=== PATIENT | male | born 1990 | race Caucasian/White ===

== ENCOUNTER 2018-01-22 15:02 | Emergency (ER) | payer OTHER ==
--- NOTE | 2018-01-22 16:05 | UC ---
General HPI - HPI Summary HPI Summary: Patient presents to urgent care with 5 days of progressive cough. Patient with coarse cough intermittent fleas. Patient states he feels like there are secretions that are "stuck." Patient does report wheezing. Patient denies fever but does work report fatigue. Patient's taken Robitussin to help with the cough. Patient denies chest pain but states his lungs feel "full" Pt denies has abdominal pain. No nausea vomiting. No rash. Patient has not taken any other [id number] medication. Patient does smoke cigarettes. Patient states his symptoms started when he was out camping. Patient works at a [employer] shop and states sometimes the heat from the oven and then going outside in the humidity makes his breathing feel worse. Patient has used inhalers in the past but does not have a history of lung disease. Patient does have sick contacts with similar symptoms but less intense that resolved in 2 days. Pt's medications reviewed this visit - History of Current Complaint Chief Complaint: UCRespiratory Stated Complaint: SUE, CONGESTION, DIARRHEA Time Seen by Provider: 01/22/18 15:51 Pain Intensity: 4 - Allergy/Home Medications Allergies/Adverse Reactions: Allergies Allergy/AdvReac Type Severity Reaction Status Date / Time Penicillins Allergy Hives Verified 01/22/18 15:34 Home Medications: Home Medications guaiFENesin LIQ* [Robitussin*] 5 mg PO Q4H PRN 01/22/18 [History Confirmed 01/22] PMH/Surg Hx/FS Hx/Imm Hx Previously Healthy: Yes - Surgical History Surgical History: None - Family History Known Family History: Positive: Other - no h/o lung dx - Social History Occupation: Employed Part-time Lives: With Family Alcohol Use: Occasionally Substance Use Type: Marijuana Substance Use Comment - Amount & Last Used: daily usage Smoking Status (MU): Heavy Every Day Tobacco Smoker Type: Cigarettes Amount Used/How Often: 1 ppd Length of Time of Smoking/Using Tobacco: since age 12 Have You Smoked in the Last Year: Yes Review of Systems Constitutional: Fatigue Respiratory: Cough Cardiovascular: Negative All Other Systems Reviewed And Are Negative: Yes Physical Exam - Summary Physical Exam Summary: Vital Signs Reviewed: Yes A+Ox3, no distress Eyes: Conjunctiva Clear, RACHEL. EOM intact and full ENT: Hearing grossly normal TM x 2 clear, mmoist, uvula midline, no exudate, no erythema Neck: Positive: Supple Respiratory: Positive: No respiratory distress, No accessory muscle use, scattered wheeze, rhonchi right base coarse cough Cardiovascular: RRR nl s1, s2 no m/r CBT <2 sec abd soft + BS nt/nd no guarding, no distension Musculoskeletal Exam: DUMONT x 4 without difficulty Strength Intact, ROM Intact Neurological: Positive: Alert, + sensation throughout Psychological: Positive: Normal Response To Family Skin: Positive: no rash, no ecchymosis Triage Information Reviewed: Yes Vital Signs: Initial Vital Signs Temp 98.5 F 01/22/18 15:25 Pulse 75 01/22/18 15:25 Resp 16 01/22/18 15:25 BP 140/89 01/22/18 15:25 Pulse Ox 95 01/22/18 15:25 Diagnostics - Radiology No standard instances Xray Interpretation: No Acute Changes Radiology Interpretation Completed By: Radiologist - Patient Name: SRIDHAR COHEN Medical Record#: [id number] Ordering Physician: Raiza Arias MD Acct.#: [id number] : 1990 Age: 27 Sex: M [facility] Exam Date: 01/22/18 1614 ADM Status: REG ER Order Information: CHEST PA & LAT 2 VWS Accession Number: [id number] CPT: 04213 INDICATION: Productive cough x1 1/2 weeks COMPARISON: None TECHNIQUE: PA and lateral views of the chest were obtained. FINDINGS: The heart and mediastinum are normal in size and contour. A focal density measuring 5 mm overlying the upper left hilum could be a calcified granuloma. The lungs are grossly clear. There is no evidence of large pleural effusion. Visualized bones are normal for the patient's age. There is no radiographic evidence of free air beneath the diaphragm IMPRESSION: No radiographic evidence of acute cardiopulmonary disease. <Electronically signed by Amarjit Suero MD in [place]> 01/227 Dictated By: Amarjit Suero MD Dictated Date/Time: 01/22/18 1637 Transcribed Date/Time: 01/22/18 1636 Copy to: CC:Raiza Arias MD; No Primary Care Phys,NOPCP Imaging - [facility] Imaging - [facility] Imaging - [facility] [id number] [place] [id number] [place] [id number] ph ([phone]) ph ([phone]) ph ([phone]) This report is only to be considered final once signed by the Provider(s) as displayed in the "< Electronically Signed by >" field (s). Absence of a signature indicates the report is in a draft status and still needs to be finalized. In the event this document was created by someone other than the signing Provider, the individual initiating the document will be listed in the "Entered by:" or "Dictated by:" lopez. Re-Evaluation - Re-Evaluation First Eval Change: Improved - Patient wheezing resolved. Patient did cough up some yellow productive sputum following the neb. Review chest x-ray with patient. Will prescribe Z-Magan. Advised patient to decrease smoking. We'll give Tessalon Perles as well as albuterol. Strict return precautions discussed. Patient given a work for note. Patient comfortable in agreement with plan. Course/Dx - Course Course Of Treatment: Pt's blood pressure mildly elevated - recommend PCP f/u. Patient presents with coarse cough since Saturday. Patient states he feel at this sputum that stuck. Patient has taken Robitussin with improvement. Patient with wheeze. On exam patient with coarse cough and rhonchi right base. We'll check chest x-ray. We'll give DuoNeb. We'll reassess. Patient comfortable and agreement with plan. - Differential Dx - Multi-Symptom Provider Diagnoses: bronchitis Discharge - Sign-Out/Discharge Documenting (check all that apply): Patient Departure - Discharge Plan Condition: Stable Disposition: HOME Prescriptions: Albuterol HFA INHALER* [Ventolin HFA Inhaler*] 2 puff INH Q4H PRN #1 mdi PRN Reason: wheeze Azithromycin TAB* [Zithromax TAB (Z-MAGAN) 250 mg #6 tabs] 2 tab PO .TODAY, THEN 1 DAILY #1 magan Benzonatate CAP* [Tessalon 100 MG CAP*] 100 mg PO TID PRN #20 cap PRN Reason: Cough Patient Education Materials: Acute Bronchitis (ED) Forms: *Work Release Referrals: No Primary Care Phys,NOPCP [Primary Care Provider] - Additional Instructions: - Stay well hydrated. Drink plenty of non-alcoholic, non-caffinated beverages. - Alternate ibuprofen (Advil, Motrin) 600mg and Tylenol 1000mg every 3 hours for pain or fever. Take with food. Do NOT take for more than 4-5 days. - These infections are spread by secretions - do NOT share eating or drinking utensils - clean items you share with other people such as cell phones, computer mouse, TV remote, computer tablets,etc. Once you have been antibiotics for 2 days, change your toothbrush and your pillowcase. - Use inhaler - 2 puffs every 4 hours for the first 2 days, After 2 days, use as needed - humidify the air in the room where you sleep - boil water, run a hot steam shower, vaporizer - okay to take over the counter decongestant and cough medication - work to decrease cigarette smoke - contact your doctor or return with questions or concerns - Billing Disposition and Condition Condition: STABLE Disposition: Home
[2018-01-22] MEDS ORDERED: Albuterol/Ipratropium NEB.SOL* Albuterol 2.5 MG/Ipratropium 0.5 MG 3 ML INH ONE (16:14)
--- NOTE | 2018-01-22 16:40 | RAD ---
INDICATION: Productive cough x1 1/2 weeks COMPARISON: None TECHNIQUE: PA and lateral views of the chest were obtained. FINDINGS: The heart and mediastinum are normal in size and contour. A focal density measuring 5 mm overlying the upper left hilum could be a calcified granuloma. The lungs are grossly clear. There is no evidence of large pleural effusion. Visualized bones are normal for the patient's age. There is no radiographic evidence of free air beneath the diaphragm IMPRESSION: No radiographic evidence of acute cardiopulmonary disease.
== END 2018-01-22 17:02 | disposition home or self-care (01) ==
LOC: UCCORT 15:02
DX: J40 Bronchitis, not specified as acute or chronic (principal); Z88.0 Allergy status to penicillin; F17.210 Nicotine dependence, cigarettes, uncomplicated
CPT/HCPCS: 71046; 99202; A9270-GY; G0463

== ENCOUNTER 2018-03-22 18:02 | Emergency (ER) | payer OTHER ==
[2018-03-22 18:19] VITALS: BP 149/81
--- NOTE | 2018-03-22 20:11 | UC ---
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 --patient is anxious - History of Current Complaint Chief Complaint: UCGeneralIllness Stated Complaint: COUGH,VOMITING,NAUSEA Time Seen by Provider: 03/22/18 20:09 Hx Obtained From: Patient Onset/Duration: Gradual Onset, Lasting Days - 3, Still Present Timing: Constant Pain Intensity: 6 Pain Location at: general abdomen pain Associated Signs & Symptoms: Positive: Abdominal Pain, Cough, Diarrhea, Decreased Oral Intake, Headache - Allergy/Home Medications Allergies/Adverse Reactions: Allergies Allergy/AdvReac Type Severity Reaction Status Date / Time Penicillins Allergy Hives Verified 01/22/18 15:34 PMH/Surg Hx/FS Hx/Imm Hx Previously Healthy: Yes - Surgical History Surgical History: None Surgery Procedure, Year, and Place: denies - Family History Known Family History: Positive: Cardiac Disease, Other - no h/o lung dx - Social History Occupation: Employed Full-time Lives: Alone Alcohol Use: Daily Alcohol Amount: 4-8 beers daily Substance Use Type: Marijuana Substance Use Comment - Amount & Last Used: daily usage Smoking Status (MU): Heavy Every Day Tobacco Smoker Type: Cigarettes Amount Used/How Often: 1 ppd Length of Time of Smoking/Using Tobacco: since age 12 Have You Smoked in the Last Year: Yes Review of Systems Constitutional: Fatigue Skin: Negative Eyes: Negative ENT: Negative Respiratory: Negative Cardiovascular: Negative Gastrointestinal: Abdominal Pain, Diarrhea Genitourinary: Negative Motor: Negative Neurovascular: Negative Musculoskeletal: Myalgia Neurological: Headache Psychological: Negative Is Patient Immunocompromised?: No All Other Systems Reviewed And Are Negative: Yes Physical Exam Triage Information Reviewed: Yes Appearance: No Pain Distress, Well-Nourished, Ill-Appearing Vital Signs: Initial Vital Signs Temp 96.9 F 03/22/18 18:14 Pulse 98 03/22/18 18:14 Resp 20 03/22/18 18:14 BP 149/81 03/22/18 18:14 Pulse Ox 100 03/22/18 18:14 Vital Signs Reviewed: Yes Eye Exam: Normal Eyes: Positive: Conjunctiva Clear ENT Exam: Normal ENT: Positive: Normal ENT inspection, Hearing grossly normal, Pharynx normal, TMs normal, Uvula midline. Negative: Nasal congestion, Nasal drainage, Trismus , Muffled voice, Hoarse voice, Sinus tenderness Dental Exam: Normal Neck exam: Normal Neck: Positive: Supple, Nontender, No Lymphadenopathy Respiratory Exam: Normal Respiratory: Positive: Chest non-tender, Lungs clear, Normal breath sounds, No respiratory distress, No accessory muscle use Cardiovascular Exam: Normal Cardiovascular: Positive: RRR, No Murmur, Pulses Normal, Brisk Capillary Refill Abdominal Exam: Other Abdomen Description: Positive: No Organomegaly, Soft, Other: - disffuse tenderness. Negative: CVA Tenderness (R), CVA Tenderness (L) Bowel Sounds: Positive: Present Musculoskeletal Exam: Normal Musculoskeletal: Positive: Strength Intact, ROM Intact, No Edema Neurological Exam: Normal Neurological: Positive: Alert, Muscle Tone Normal Psychological Exam: Normal Skin Exam: Normal Diagnostics - Laboratory Diagnostic Studies Completed/Ordered: ua sg>1.030, Re-Evaluation - Re-Evaluation First Eval Change: Improved - felt better after 1 liter of fluid---lab studies obtain- encouraged patient to follow with pcp this week-- Course/Dx - Course Course Of Treatment: zithroamx, tessalon increase fluids, follow with pcp - Differential Dx - Multi-Symptom Provider Diagnoses: acute diarrhea, acute cough Discharge - Sign-Out/Discharge Documenting (check all that apply): Patient Departure All imaging exams completed and their final reports reviewed: No Studies - Discharge Plan Condition: Stable Disposition: HOME Prescriptions: Azithromycin TAB* [Zithromax TAB (Z-MAITE) 250 mg #6 tabs] 250 mg PO DAILY #4 tab Benzonatate CAP* [Tessalon 100 MG CAP*] 100 mg PO TID #30 cap Patient Education Materials: Ibuprofen (By mouth), Acute Diarrhea (ED), Hypertension (ED), Nutrition Tips for Relief of Diarrhea (ED), Acute Cough (ED) Referrals: LAURENCE Nobles [Medical Doctor] - 2 Days - Billing Disposition and Condition Condition: STABLE Disposition: Home
[2018-03-22] MEDS ORDERED: NS 0.9% 1000 ML* 1,000 ML IV ONE (20:33)
[2018-03-22] MEDS ORDERED: Albuterol/Ipratropium NEB.SOL* Albuterol 2.5 MG/Ipratropium 0.5 MG 3 ML INH ONE (20:34)
[2018-03-22] MEDS ORDERED: Ibuprofen TAB* 600 MG PO ONE (21:29)
[2018-03-22] MEDS ORDERED: Benzonatate CAP* 100 MG PO ONE (21:48)
[2018-03-22] MEDS ORDERED: Azithromycin TAB* 250 MG PO ONE (21:52)
[2018-03-23 14:17] LABS: Hematocrit 45 % (42-52); Hemoglobin 15.2 g/dl (14.0-18.0); Mean Corpuscular HGB Conc 34 g/dl (31-36); Mean Corpuscular Hemoglobin 30 pg (27-31); Mean Corpuscular Volume 88 fL (80-94); Mean Platelet Volume 9.2 um3 (7.4-10.4); Platelet Count 154 10^3/ul (150-450); Red Blood Count 5.07 10^6/ul (4.00-5.40); Red Cell Distribution Width 14 % (10.5-15); White Blood Count 5.7 10^3/ul (3.5-10.8)
[2018-03-23 14:20] LABS: ABS Basophils 0.1 10^3/ul (0-0.2); ABS Eosinophils 0 10^3/ul (0-0.6); ABS Monocytes 0.8 10^3/ul (0-0.8); ABS Neutrophils 3.8 10^3/ul (1.5-7.7)
[2018-03-23 14:32] LABS: EGFR Non-African American 118.5 (>60)
[2018-03-23 14:44] LABS: ABS Basophils 0 10^3/ul (0-0.2); ABS Neutrophils 3.4 10^3/ul (1.5-7.7); Monocytes % 12 % (0-7)
--- NOTE | 2018-03-24 07:00 | UC ---
- Progress Note Progress Note: notify pt of increased chol needs to find a PMD and have it addressed Re-Evaluation - Re-Evaluation First Eval Change: Improved - felt better after 1 liter of fluid---lab studies obtain- encouraged patient to follow with pcp this week-- Discharge - Sign-Out/Discharge Documenting (check all that apply): Post-Discharge Follow Up All imaging exams completed and their final reports reviewed: No Studies - Discharge Plan Condition: Stable Disposition: HOME Prescriptions: Azithromycin TAB* [Zithromax TAB (Z-MAITE) 250 mg #6 tabs] 250 mg PO DAILY #4 tab Benzonatate CAP* [Tessalon 100 MG CAP*] 100 mg PO TID #30 cap Patient Education Materials: Ibuprofen (By mouth), Acute Diarrhea (ED), Hypertension (ED), Nutrition Tips for Relief of Diarrhea (ED), Acute Cough (ED) Referrals: LAURENCE Nobles [Medical Doctor] - 2 Days - Billing Disposition and Condition Condition: STABLE Disposition: Home
== END 2018-03-22 22:23 | disposition home or self-care (01) ==
LOC: UCCORT 18:02
DX: R19.7 Diarrhea, unspecified (principal); R05 Cough; Z88.0 Allergy status to penicillin
CPT/HCPCS: 36415; 80053; 80061; 81003; 85025; 85060; 86592; 86703; 86706; 86803; 87340; 87491; 87591; 96360; 99213; A9270-GY; G0463